=== PATIENT | male | born 1985 | race African-American/Black ===

== ENCOUNTER 2025-02-04 11:51 | Emergency (ER) | payer SELFPAY ==
[~2025-02-04] VITALS: Ht 200.7 cm; Wt 100.0 kg
[2025-02-04 11:58] VITALS: O2SAT 100
[2025-02-04] MEDS: TETANUS, DIPHTHERIA, PERTUSSIS VAC/PF 0.5ML (>10YR OLD) IM ONE (12:45)
[2025-02-04] MEDS ORDERED: NALOXONE HCL 0.4MG/ML 1ML VIAL IV PRN (12:45)
[2025-02-04 15:27] LABS: BASOPHILS % 0.5 % (0.0-2.0); DIFFERENTIAL COMMENT 0; EOSINOPHILS % 2.1 % (0.0-5.0); HEMATOCRIT. 43.7 % (42.0-52.0); HEMOGLOBIN. 14.4 g/dL (14.0-18.0); MEAN CORPUSCULAR HEMOGLOBIN 26.3 pg (28.0-32.0); MEAN CORPUSCULAR VOLUME 79.5 fL (80.0-94.0); MEAN PLATELET VOLUME 10.4 fl (7.4-10.4); MONOCYTES % 12.6 % (2.0-8.0); NEUTROPHILS % 36.8 % (40.0-76.0); PLATELET 135 x1000/uL (130-400); RED BLOOD CELL COUNT 5.49 mill/uL (4.7-6.1)
[2025-02-04 15:35] LABS: CHLORIDE 105 mEq/L (98-107); POTASSIUM 3.5 mEq/L (3.5-5.1); SODIUM 144 mEq/L (136-145)
[2025-02-04 15:36] LABS: CARBON DIOXIDE 30 mEq/L (21-32)
[2025-02-04 15:41] LABS: CREATININE 0.8 mg/dL (0.6-1.3); GLUCOSE 81 mg/dL (70-105)
[2025-02-04 15:42] LABS: ETHANOL BLOOD 132 mg/dL (<10); UREA NITROGEN BLOOD 8 mg/dL (9-23)
[2025-02-04 15:43] LABS: ACETAMINOPHEN < 2 ug/mL (10-30)
[2025-02-04 17:45] VITALS: BP 142/93; PULSE 70; RESP 16; TEMP 37; O2SAT 100
== END 2025-02-04 18:08 | disposition home or self-care (01) ==
LOC: ER 11:51
DX: S51.011A Laceration without foreign body of right elbow, initial encounter (principal); F10.129 Alcohol abuse with intoxication, unspecified; R55 Syncope and collapse; Z79.899 Other long term (current) drug therapy; W19.XXXA Unspecified fall, initial encounter; Y93.89 Activity, other specified; Y92.000 Kitchen of unspecified non-institutional (private) residence as the place of occurrence of the external cause; Y99.8 Other external cause status; Y90.9 Presence of alcohol in blood, level not specified
CPT/HCPCS: 36415; 71045; 73080; 80048; 80307; 80320; 80329; 85025; 99284; G0480